=== PATIENT | male | born 1975 | race African-American/Black ===

== ENCOUNTER 2017-01-16 01:48 | Emergency (ER) | payer SELFPAY ==
[2017-01-16 02:37] LABS: #Basophils 0.1 thou/uL (0.0-0.2); #Eosinphils 0.2 thou/uL (0.0-0.7); #Lymphocytes 2.6 thou/uL (1.20-3.40); #Monocytes 0.6 thou/uL (0.11-0.59); #Neutrophils 3.7 thou/uL (1.40-6.50); %Basophils 1.2 % (0.0-1.0); %Eosinophils 3.1 % (0.0-10.0); %Lymphocytes 35.9 % (21.0-51.0); %Monocytes 8.8 % (0.0-10.0); Hematocrit 45.1 % (42.0-52.0); Mean Platelet Volume 9.8 fL (7.4-10.4); Red Blood Cell (RBC) Count 5.83 mill/uL (4.70-6.10); White Blood Cell (WBC) Count 7.2 thou/uL (4.8-10.8)
[2017-01-16 03:00] LABS: ALT (SGPT) 28 U/L (8-55); AST (SGOT) 22 U/L (5-34); Alkaline Phosphatase 90 U/L (40-150); Anion Gap 13 mmol/L (10-20); BUN (Urea Nitrogen) 13 mg/dL (8.9-20.6); Bilirubin, Total 0.4 mg/dL (0.2-1.2); CK (CPK) 339 U/L (30-200); Calc. Creatinine Clearance 0 mL/min (70-130); Calcium 10.1 mg/dL (7.8-10.44); Carbon Dioxide 25 mmol/L (22-29); Chloride 104 mmol/L (98-107); Estimated GFR-MDRD 83; Globulin 3.6 g/dL (2.4-3.5); Protein, Total 8.2 g/dL (6.0-8.3)
[2017-01-16 03:03] LABS: Troponin I Less than 0.010 ng/mL (< 0.028)
[2017-01-16 03:27] LABS: Amphetamine Not Detected (NotDetected); Methadone Not Detected (NotDetected); Methamphetamine Not Detected (NotDetected)
[2017-01-16] MEDS ORDERED: Ibuprofen 200 MG TAB ONE (03:31)
--- NOTE | 2017-01-16 07:18 | RAD ---
PORTABLE AP CHEST: Date: 01/16/17 HISTORY: Chest pain. COMPARISON: 09/30/09. FINDINGS: Cardiac silhouette and pulmonary vasculature are within normal limits. Lungs are clear. There has be en no interval change from prior study. IMPRESSION: No acute cardiopulmonary process. POS: [facility]
== END 2017-01-16 04:00 | disposition home or self-care (01) ==
LOC: ERS 01:48
DX: R00.2 Palpitations (principal); K02.9 Dental caries, unspecified; J45.909 Unspecified asthma, uncomplicated; F17.210 Nicotine dependence, cigarettes, uncomplicated; Z79.899 Other long term (current) drug therapy
CPT/HCPCS: 71010; 80053; 80306; 82550; 82553; 84443; 84484; 85025; 85379; 93005; 96360

== ENCOUNTER 2017-08-05 18:45 | Emergency (ER) | payer SELFPAY ==
[2017-08-05 19:26] LABS: Hemoglobin 15.6 g/dL (14.0-18.0); Mean Corpuscular HGB CONC 36.2 g/dL (32.0-36.0); Mean Corpuscular Hemoglobin 27.7 pg (27.0-31.0); Mean Corpuscular Volume 76.4 fl (80.0-94.0); Mean Platelet Volume 10.2 fL (7.4-10.4); Platelet Count 188 thou/uL (130-400); RBC Distribution Width 12.7 % (11.5-14.5); Red Blood Cell (RBC) Count 5.62 mill/uL (4.70-6.10); White Blood Cell (WBC) Count 9.1 thou/uL (4.8-10.8)
[2017-08-05 19:32] LABS: Band 1 % (5-11); Eosinophils 2 % (0-10); Large Platelets SLIGHT; Lymphocytes 21 % (21-51); MDiff Complete? YES; Microcytosis SLIGHT = 6-15 cells (100X) (0-5/hpf); Monocytes 6 % (0-10); Neutrophil 58 % (42-75); PLT Morphology Comment Appears Adequate; Polychromasia SLIGHT = 2-3 cells (100X) (0-2/hpf); Reactive Lymphocytes 12 % (0-10); Target Cells SLIGHT = 2-5 cells (100X) (0-1/hpf)
[2017-08-05 19:39] LABS: ALT (SGPT) 22 U/L (8-55); AST (SGOT) 23 U/L (5-34); Albumin 4.5 g/dL (3.5-5.0); Alkaline Phosphatase 92 U/L (40-150); Anion Gap 14 mmol/L (10-20); BUN (Urea Nitrogen) 9 mg/dL (8.9-20.6); Bilirubin, Total 0.7 mg/dL (0.2-1.2); Calc. Creatinine Clearance 0 mL/min (70-130); Calcium 9.8 mg/dL (7.8-10.44); Carbon Dioxide 25 mmol/L (22-29); Chloride 104 mmol/L (98-107); Estimated GFR-MDRD Greater than 90; Globulin 3.3 g/dL (2.4-3.5); Glucose 115 mg/dL (70-105); Potassium 3.5 mmol/L (3.5-5.1); Protein, Total 7.8 g/dL (6.0-8.3); Sodium 139 mmol/L (136-145)
[2017-08-05 19:42] LABS: Troponin I Less than 0.010 ng/mL (< 0.028)
--- NOTE | 2017-08-05 20:22 | RAD ---
PORTABLE CHEST: HISTORY: Heart palpitations. FINDINGS: The lung qureshi are clear. No infiltrate or vascular congestion is seen. The heart and mediastinum are unremarkable. IMPRESSION: No acute finding. POS: [facility]
[2017-08-05 20:28] LABS: Bilirubin Negative (Negative); Blood, Urine Negative (Negative); Clarity CLEAR (Clear); Glucose, Urine (Dipstick) Negative (Negative); Leukocyte Negative (Negative); Nitrite Negative (Negative); Protein, Urine (Dipstick) Negative (Neg-Trace); Specific Gravity, Urine 1.012 (1.002-1.036)
[2017-08-05 20:38] LABS: Amphetamine Not Detected (NotDetected); Barbiturates Screen Not Detected (NotDetected); Benzodiazepine Screen Not Detected (NotDetected); Cocaine Metabolite Screen Detected (NotDetected); Medtox Control Line Valid? VALID (VALID); Medtox Reader # READER 1; Methadone Not Detected (NotDetected); Methamphetamine Not Detected (NotDetected); Opiate Screen Not Detected (NotDetected); Oxycodone Screen Not Detected (NotDetected); Phencyclidine (PCP) Not Detected (NotDetected); THC/Cannabinoid Screen Not Detected (NotDetected); Tricyclic Screen Not Detected (NotDetected)
== END 2017-08-05 20:55 | disposition home or self-care (01) ==
LOC: ERS 18:45
DX: E86.0 Dehydration (principal); J45.909 Unspecified asthma, uncomplicated; F17.210 Nicotine dependence, cigarettes, uncomplicated
CPT/HCPCS: 71045; 80053; 80306; 81003; 82553; 84443; 84484; 85025; 93005; 96360

== ENCOUNTER 2017-09-15 06:36 | Emergency (ER) | payer SELFPAY ==
[2017-09-15 07:23] LABS: Bilirubin Negative (Negative); Blood, Urine Trace (Negative); Clarity CLOUDY (Clear); Glucose, Urine (Dipstick) Negative (Negative); Leukocyte Moderate (Negative); Nitrite Negative (Negative); Protein, Urine (Dipstick) 30 mg/dL (Neg-Trace); Specific Gravity, Urine 1.025 (1.002-1.036)
[2017-09-15 07:25] LABS: Bacteria/HPF None Seen HPF (None Seen); Hyaline Casts/LPF 0-3 HYALINE CAST LPF (0-3 Hyaline); Pathc Cast-AUWi Flag 0.14 (0-2.49); RBC/HPF 0-3 HPF (0-3); Squamous Epithelial None Seen HPF (0-3)
[2017-09-15] MEDS ORDERED: Lidocaine 1% PF 5 ML VIAL ONE (07:44)
[2017-09-15] MEDS ORDERED: Azithromycin 250 MG TAB ONE (07:44)
[2017-09-15] MEDS ORDERED: cefTRIAXone\\ROCEPHIN 250 MG VIAL ONE (07:44)
== END 2017-09-15 08:12 | disposition home or self-care (01) ==
LOC: ERS 06:36
DX: A64 Unspecified sexually transmitted disease (principal); J45.909 Unspecified asthma, uncomplicated; F17.210 Nicotine dependence, cigarettes, uncomplicated
CPT/HCPCS: 81003; 81015; 96372; J0696; J2001

== ENCOUNTER 2020-09-17 18:20 | Emergency (ER) | payer OTHER ==
[2020-09-17] MEDS ORDERED: Naproxen 500 MG TAB ONE (19:07)
== END 2020-09-17 19:36 | disposition home or self-care (01) ==
LOC: ERS 18:20
DX: S80.211A Abrasion, right knee, initial encounter (principal); M25.571 Pain in right ankle and joints of right foot; J45.909 Unspecified asthma, uncomplicated; F17.210 Nicotine dependence, cigarettes, uncomplicated; W18.30XA Fall on same level, unspecified, initial encounter; X50.1XXA Overexertion from prolonged static or awkward postures, initial encounter
CPT/HCPCS: 99283

== ENCOUNTER 2021-01-06 09:26 | Emergency (ER) | payer OTHER | END 2021-01-06 10:10 | disposition home or self-care (01) | LOC: ERS 09:26 | DX: H10.9 Unspecified conjunctivitis (principal); J45.909 Unspecified asthma, uncomplicated; F17.210 Nicotine dependence, cigarettes, uncomplicated | CPT/HCPCS: 99282 ==

== ENCOUNTER 2021-11-16 13:28 | Emergency (ER) | payer OTHER, SELFPAY | END 2021-11-16 15:12 | disposition home or self-care (01) | LOC: ERS 13:28 | DX: J45.901 Unspecified asthma with (acute) exacerbation (principal); F17.210 Nicotine dependence, cigarettes, uncomplicated; Z76.0 Encounter for issue of repeat prescription | CPT/HCPCS: 99284 ==

== ENCOUNTER 2022-01-28 21:47 | Emergency (ER) | payer BC, SELFPAY ==
[2022-01-28 23:12] LABS: SARS-CoV-2 NAA Rapid Test Not Detected (NotDetected)
== END 2022-01-28 23:59 | disposition home or self-care (01) ==
LOC: ERS 21:47
DX: R05.9 Cough, unspecified (principal); F17.210 Nicotine dependence, cigarettes, uncomplicated
CPT/HCPCS: 71045

== ENCOUNTER 2024-10-22 20:24 | Emergency (ER) | payer BC ==
[2024-10-22] MEDS ORDERED: Boostrix 0.5 ML (Tdap) VIAL (>/=7 yrs of age) ONE (20:33)
== END 2024-10-22 21:57 | disposition home or self-care (01) ==
LOC: ERS 20:24
DX: S61.215A Laceration without foreign body of left ring finger without damage to nail, initial encounter (principal); F17.210 Nicotine dependence, cigarettes, uncomplicated; W26.0XXA Contact with knife, initial encounter; Z23 Encounter for immunization
CPT/HCPCS: 90471; 90715